=== PATIENT | female | born 1940 | race Two or more races ===

== ENCOUNTER 2022-07-07 10:46 | Emergency (ER) | payer OTHER ==
[~2022-07-07] VITALS: Ht 175.3 cm; Wt 108.9 kg
[~2022-07-07 10:46] MED LIST: ALBUAER3 IN; ALLO100T PO; ASCO10003 PO; ASPI1TAB20 PO; AZIT500T66 PO; CHLO25TA2 PO; CHOL1CAP47 PO; CLOP75TA28 PO; DEXA6TAB6 PO; FLUC100T34 PO; ISOS1TAB28 PO; LEVO25TA6 PO; LEVO50TA7 PO; LISI20TA28 PO; LOSA-39 PO; POTA10TA51 PO; SIMV-13 PO; ZINC220T6 PO
[2022-07-07 12:25] LABS: Basophils # (auto) 0.1 10 ^3/uL (0-0.2); Eosinophils # (auto) 0.2 10 ^3/uL (0-0.8); Eosinophils % (auto) 2.4 % (0.0-7.0); Hematocrit 41.4 % (36.0-46.0); Hemoglobin 13.7 g/dL (12.2-16.2); Lymphocytes # (auto) 1.6 10 ^3/uL (0.4-5.4); Lymphocytes % (auto) 22.7 % (10.0-50.0); Mean Corpuscular Hemoglobin 30.7 pg (28.0-32.0); Mean Corpuscular Volume 92.8 fL (80.0-100.0); Monocytes # (auto) 0.6 10 ^3/uL (0-1.3); Monocytes % (auto) 9.1 % (0.0-12.0); Neutrophils # (auto) 4.6 10 ^3/uL (1.6-8.6); Neutrophils % (auto) 64.8 % (37.0-80.0); Nucleated Red Blood Cells % 0.1 %; Red Blood Cells 4.46 10^6/uL (4.0-5.20); Red Cell Distribution Width 13.9 % (11.8-14.3)
[2022-07-07 12:41] LABS: INR 0.95 (0.9-1.15); Partial Thromboplastin Time 30.5 sec (24.6-33.4)
[2022-07-07] MEDS ORDERED: PROMETHAZINE HCL 25 MG/ML 1ML IM ONE (13:30)
[2022-07-07] MEDS ORDERED: MEPERIDINE HCL (50 MG/ML) 1 ML VIAL IM ONE (13:30)
[2022-07-07 14:02] VITALS: BP 124/83
[2022-07-07] MEDS ORDERED: PRED20TA2 PO (14:54)
== END 2022-07-07 14:58 | disposition home or self-care (01) ==
LOC: ER 10:46
DX: G89.29 Other chronic pain (principal); M54.50 Low back pain, unspecified; M51.36 Other intervertebral disc degeneration, lumbar region; K80.20 Calculus of gallbladder without cholecystitis without obstruction; I10 Essential (primary) hypertension; I25.2 Old myocardial infarction; E78.5 Hyperlipidemia, unspecified; E03.9 Hypothyroidism, unspecified; Z90.49 Acquired absence of other specified parts of digestive tract; Z95.1 Presence of aortocoronary bypass graft; Z90.710 Acquired absence of both cervix and uterus; Z90.89 Acquired absence of other organs
CPT/HCPCS: 36415; 72131; 83735; 84484; 85025; 85610; 85730; 93005; 96372; 99285; J2175; J2550

== ENCOUNTER 2022-08-27 13:54 | Inpatient (IN) | payer OTHER ==
[~2022-08-27] VITALS: Ht 175.3 cm; Wt 102.3 kg
[~2022-08-27 13:54] MED LIST changes: +PRED20TA2 PO
[2022-08-27] MEDS ORDERED: MORPHINE SULFATE 4 MG/ML SYR/VIAL IV ONE (14:15)
[2022-08-27] MEDS ORDERED: ONDANSETRON HCL 4 MG/2 ML VIAL IV ONE (14:15)
[2022-08-27 14:35] LABS: Basophils # (auto) 0.1 10 ^3/uL (0-0.2); Basophils % (auto) 0.9 % (0.0-2.0); Eosinophils # (auto) 0.1 10 ^3/uL (0-0.8); Eosinophils % (auto) 0.8 % (0.0-7.0); Hematocrit 44.3 % (36.0-46.0); Hemoglobin 14.8 g/dL (12.2-16.2); Lymphocytes # (auto) 1.7 10 ^3/uL (0.4-5.4); Lymphocytes % (auto) 19.6 % (10.0-50.0); Mean Corpuscular Hemoglobin 30.9 pg (28.0-32.0); Mean Corpuscular Hgb Conc. 33.5 g/dL (32.0-36.0); Mean Corpuscular Volume 92.4 fL (80.0-100.0); Monocytes # (auto) 0.9 10 ^3/uL (0-1.3); Monocytes % (auto) 10.3 % (0.0-12.0); Neutrophils # (auto) 5.9 10 ^3/uL (1.6-8.6); Neutrophils % (auto) 68.4 % (37.0-80.0); Nucleated Red Blood Cells % 0.1 %; Red Blood Cells 4.79 10^6/uL (4.0-5.20); Red Cell Distribution Width 14.3 % (11.8-14.3); White Blood Cell 8.6 10^3/uL (4.4-10.8)
[2022-08-27 14:56] LABS: INR 0.95 (0.9-1.15); Partial Thromboplastin Time 28.2 sec (24.6-33.4)
[2022-08-27 15:01] LABS: Albumin 4.1 g/dL (3.4-5.0); BUN/Creatinine Ratio 20.5; Calcium 8.8 mg/dL (8.5-10.1); Potassium 4.2 mmol/L (3.5-5.1)
[2022-08-27 15:03] LABS: Bilirubin, Total 1.6 mg/dL (0.2-1.0)
[2022-08-27] MEDS ORDERED: ENOXAPARIN SOD 100 MG/1 ML SYRINGE SC ONE (15:30)
[2022-08-27] MEDS ORDERED: HYDROmorphone HCL 2 MG/ML VL/or syr IV ONE (16:15)
[2022-08-27] MEDS ORDERED: ONDANSETRON HCL 4 MG/2 ML VIAL IV PRN (20:30)
[2022-08-27] MEDS ORDERED: SODIUM CHLORIDE 0.9% 1,000 ML IV ONE (20:30)
[2022-08-27] MEDS ORDERED: NITROGLYCERIN 0.4 MG SL TAB SL PRN (20:30)
[2022-08-27] MEDS ORDERED: ACETAMINOPHEN 325 MG TAB PO PRN (20:30)
[2022-08-27] MEDS ORDERED: MORPHINE SULFATE INJ 2 MG/ml SYRG IV PRN (20:30)
[2022-08-27] MEDS ORDERED: ALBUTEROL SULF HFA 90MCG INH 200DOSE IN PRN (20:30)
[2022-08-27] MEDS: HYDROmorphone HCL 2 MG/ML VL/or syr IV PRN (21:09)
[2022-08-27 21:22] LABS: Cholesterol 201 mg/dL (< 200); Triglycerides 245 mg/dL (< 150)
[2022-08-27 21:24] LABS: HDL Cholesterol 53 mg/dL (40-59); LDL Cholesterol 79 mg/dL (< 100)
[2022-08-27] MEDS: ATORVASTATIN 20 MG TAB PO SCH (22:35)
[2022-08-27] MEDS: DOCUSATE SOD 100 MG CAP PO PRN (22:36)
[2022-08-28] MEDS: HYDROmorphone HCL 2 MG/ML VL/or syr IV PRN ×4 (01:20→20:59)
[2022-08-28] MEDS ORDERED: ENOXAPARIN SOD 100 MG/1 ML SYRINGE SC SCH (04:00)
[2022-08-28 04:45] LABS: Basophils # (auto) 0.1 10 ^3/uL (0-0.2); Basophils % (auto) 0.8 % (0.0-2.0); Eosinophils # (auto) 0.1 10 ^3/uL (0-0.8); Hematocrit 39.5 % (36.0-46.0); Hemoglobin 13.3 g/dL (12.2-16.2); Lymphocytes # (auto) 2.2 10 ^3/uL (0.4-5.4); Lymphocytes % (auto) 32.8 % (10.0-50.0); Mean Corpuscular Hemoglobin 31.7 pg (28.0-32.0); Mean Corpuscular Hgb Conc. 33.8 g/dL (32.0-36.0); Mean Corpuscular Volume 93.8 fL (80.0-100.0); Monocytes # (auto) 0.9 10 ^3/uL (0-1.3); Monocytes % (auto) 12.9 % (0.0-12.0); Neutrophils # (auto) 3.5 10 ^3/uL (1.6-8.6); Neutrophils % (auto) 51.5 % (37.0-80.0); Nucleated Red Blood Cells % 0.1 %; Red Blood Cells 4.21 10^6/uL (4.0-5.20); Red Cell Distribution Width 14.5 % (11.8-14.3); White Blood Cell 6.8 10^3/uL (4.4-10.8)
[2022-08-28 05:05] LABS: Albumin 3.3 g/dL (3.4-5.0); BUN/Creatinine Ratio 23.7; Bilirubin, Total 1.3 mg/dL (0.2-1.0); Calcium 8.1 mg/dL (8.5-10.1); Total Protein 5.8 g/dL (6.4-8.2)
[2022-08-28] MEDS: LEVOTHYROXINE SODIUM 25 MCG TAB PO SCH (06:51)
[2022-08-28] MEDS ORDERED: LISINOPRIL 20 MG TAB PO SCH (10:00)
[2022-08-28] MEDS ORDERED: ASPirin 81 mg TAB PO SCH (10:00)
[2022-08-28] MEDS ORDERED: ISOSORBIDE MONONITRATE ER 60 MG TAB PO SCH (10:00)
[2022-08-28] MEDS ORDERED: PATIENTS OWN MEDICATION (Clopidogrel Bisulfate (Plavix) 75 MG) PO SCH (10:00)
[2022-08-28] MEDS ORDERED: ENOXAPARIN SOD 40 MG/0.4 ML SYRINGE SC SCH (10:00)
[2022-08-28] MEDS ORDERED: ASPirin-EC 81 mg tab PO SCH (10:00)
[2022-08-28] MEDS: ASCORBIC ACID 1,000 MG TAB PO SCH (10:35)
[2022-08-28] MEDS: CHOLECALCIFEROL (VITD3) 2,000 UNIT CAP/TAB PO SCH (10:36)
[2022-08-28] MEDS: ALLOPURINOL 100 MG TAB PO SCH (10:36)
[2022-08-28] MEDS: CLOPIDOGREL BISULFATE 75 MG TAB PO SCH (10:36)
[2022-08-28] MEDS: LOSARTAN POTASSIUM 50 MG TAB PO SCH (10:37)
[2022-08-28] MEDS: PANTOPRAZOLE 40 MG/10 ML VIAL INJ IV SCH (10:37)
[2022-08-28] MEDS: POTASSIUM CHLORIDE 8 MEQ TAB PO SCH (10:38)
[2022-08-28] MEDS: CHLORTHALIDONE 25 MG PO SCH (10:42)
[2022-08-28] MEDS: PATIENTS OWN MEDICATION (Zinc Sulfate 220 MG) PO SCH (10:44)
[2022-08-28] MEDS ORDERED: GABA400C11 PO (11:55)
[2022-08-28] MEDS ORDERED: METH750T22 PO (17:55)
[2022-08-28 18:05] VITALS: BP 109/63
[2022-08-28] MEDS: DOCUSATE SOD 100 MG CAP PO PRN (18:22)
[2022-08-28 20:00] VITALS: BP 137/77
[2022-08-28 21:01] LABS: Urine Bacteria NONE SEEN /hpf (None Seen); Urine Blood Negative /uL (Negative); Urine Mucus FEW (None Seen); Urine Specific Gravity 1.017 (1.001-1.035); Urine WBC 12 /hpf (0 - 5)
[2022-08-28] MEDS: ATORVASTATIN 20 MG TAB PO SCH (21:45)
[2022-08-28 22:00] VITALS: BP 136/75
[2022-08-29] MEDS: HYDROmorphone HCL 2 MG/ML VL/or syr IV PRN ×2 (04:20→10:01)
[2022-08-29 05:00] VITALS: BP 125/54
[2022-08-29] MEDS: LEVOTHYROXINE SODIUM 25 MCG TAB PO SCH (06:43)
[2022-08-29] MEDS: DOCUSATE SOD 100 MG CAP PO PRN (06:54)
[2022-08-29 07:30] VITALS: BP 109/55
[2022-08-29 08:35] VITALS: BP 116/54
[2022-08-29] MEDS: PANTOPRAZOLE 40 MG/10 ML VIAL INJ IV SCH (09:12)
[2022-08-29] MEDS: CLOPIDOGREL BISULFATE 75 MG TAB PO SCH (09:14)
[2022-08-29] MEDS: ALLOPURINOL 100 MG TAB PO SCH (09:14)
[2022-08-29] MEDS: LOSARTAN POTASSIUM 50 MG TAB PO SCH (09:14)
[2022-08-29] MEDS: ASCORBIC ACID 1,000 MG TAB PO SCH (09:14)
[2022-08-29] MEDS: CHOLECALCIFEROL (VITD3) 2,000 UNIT CAP/TAB PO SCH (09:14)
[2022-08-29] MEDS: POTASSIUM CHLORIDE 8 MEQ TAB PO SCH (09:26)
[2022-08-29] MEDS ORDERED: ENOXAPARIN SOD 40 MG/0.4 ML SYRINGE SC SCH (10:00)
[2022-08-29] MEDS: CHLORTHALIDONE 25 MG PO SCH (10:00)
[2022-08-29] MEDS: PATIENTS OWN MEDICATION (Zinc Sulfate 220 MG) PO SCH (10:00)
[2022-08-29] MEDS ORDERED: FLEET ENEMA(ADULT) 135 ML PR ONE (10:45)
[2022-08-29] MEDS ORDERED: MAGNESIUM CITRATE SOLUTION 300 ML BTL PO ONE (10:45)
[2022-08-29] MEDS ORDERED: GOLYTELY 4L KIT PO ONE ×2 (12:30)
[2022-08-29 13:18] VITALS: BP 135/67
[2022-08-29 16:39] VITALS: BP 109/50
== END 2022-08-29 14:30 | disposition home health service (06) | DRG 551 ==
LOC: EDBD 13:54 → ER 13:58 → TELE 20:26 → TELE-CENTR 08-28 17:28 → CENTRAL 08-28 17:39
PROVIDERS: ADMIT Nurse Practitioner Family; ATTEND Internal Medicine
DX: M51.36 Other intervertebral disc degeneration, lumbar region (principal); I21.4 Non-ST elevation (NSTEMI) myocardial infarction; E66.9 Obesity, unspecified; G89.29 Other chronic pain; I10 Essential (primary) hypertension; I16.0 Hypertensive urgency; E03.9 Hypothyroidism, unspecified; I25.10 Atherosclerotic heart disease of native coronary artery without angina pectoris; Z20.822 Contact with and (suspected) exposure to COVID-19; K80.20 Calculus of gallbladder without cholecystitis without obstruction; M10.9 Gout, unspecified; M54.31 Sciatica, right side; E78.5 Hyperlipidemia, unspecified; I25.2 Old myocardial infarction; Z79.02 Long term (current) use of antithrombotics/antiplatelets; Z79.899 Other long term (current) drug therapy; Z80.1 Family history of malignant neoplasm of trachea, bronchus and lung; Z82.3 Family history of stroke; Z82.49 Family history of ischemic heart disease and other diseases of the circulatory system; Z86.73 Personal history of transient ischemic attack (TIA), and cerebral infarction without residual deficits; Z90.49 Acquired absence of other specified parts of digestive tract; Z90.710 Acquired absence of both cervix and uterus; Z95.1 Presence of aortocoronary bypass graft; Z68.33 Body mass index [BMI] 33.0-33.9, adult
CPT/HCPCS: 36415; 71045; 72131; 74176; 80053; 80061; 81001; 83880; 84443; 84484; 85025; 85610; 85730; 87426; 93005; 93306; 96361; 96374; 96375; C9113; G0378; J2405

== ENCOUNTER 2023-03-15 06:50 | Inpatient (IN) | payer OTHER ==
[~2023-03-15] VITALS: Ht 175.3 cm; Wt 95.3 kg
[~2023-03-15 06:50] MED LIST changes: -ALBUAER3 IN; -ASPI1TAB20 PO; -AZIT500T66 PO; -CHLO25TA2 PO; -DEXA6TAB6 PO; -FLUC100T34 PO; +GABA400C11 PO; -LEVO50TA7 PO; -LISI20TA28 PO; +METH750T22 PO; -POTA10TA51 PO; -PRED20TA2 PO; -ZINC220T6 PO
[2023-03-15 07:51] LABS: Basophils # (auto) 0.1 10 ^3/uL (0-0.2); Basophils % (auto) 0.8 % (0.0-2.0); Eosinophils # (auto) 0 10 ^3/uL (0-0.8); Eosinophils % (auto) 0.7 % (0.0-7.0); Hematocrit 44.1 % (36.0-46.0); Lymphocytes # (auto) 1.5 10 ^3/uL (0.4-5.4); Lymphocytes % (auto) 22.8 % (10.0-50.0); Mean Corpuscular Hemoglobin 31.2 pg (28.0-32.0); Mean Corpuscular Hgb Conc. 34.1 g/dL (32.0-36.0); Mean Corpuscular Volume 91.3 fL (80.0-100.0); Monocytes # (auto) 0.8 10 ^3/uL (0-1.3); Monocytes % (auto) 11.9 % (0.0-12.0); Neutrophils # (auto) 4.2 10 ^3/uL (1.6-8.6); Neutrophils % (auto) 63.8 % (37.0-80.0); Nucleated Red Blood Cells % 0.4 %; Red Blood Cells 4.83 10^6/uL (4.0-5.20); White Blood Cell 6.6 10^3/uL (4.4-10.8)
[2023-03-15 08:08] LABS: Albumin 4.2 g/dL (3.4-5.0); Calcium 9.1 mg/dL (8.5-10.1); Potassium 3.9 mmol/L (3.5-5.1)
[2023-03-15 08:12] LABS: Bilirubin, Total 1.3 mg/dL (0.2-1.0)
[2023-03-15 08:20] LABS: Urine Bacteria NONE SEEN /hpf (None Seen); Urine Blood Negative /uL (Negative); Urine Mucus FEW (None Seen); Urine Specific Gravity 1.015 (1.001-1.035); Urine WBC 31 /hpf (0 - 5)
[2023-03-15] MEDS ORDERED: SODIUM CHLORIDE 0.9% 1,000 ML IV ONE (08:30)
[2023-03-15] MEDS ORDERED: cefTRIAXone 1GM/50ML D5W 50 ML IV ONE ×2 (08:45→11:45)
[2023-03-15] MEDS ORDERED: metroNIDAZOLE 500MG/100ML 100 ML IV ONE (11:45)
[2023-03-15] MEDS ORDERED: MORPHINE SULFATE INJ 2 MG/ml SYRG IV PRN ×2 (12:00→22:15)
[2023-03-15] MEDS ORDERED: HYDROcodone-ACET 5/325MG TAB PO PRN (12:00)
[2023-03-15] MEDS ORDERED: DOCUSATE SOD 100 MG CAP PO PRN (12:00)
[2023-03-15] MEDS ORDERED: NITROGLYCERIN 0.4 MG SL TAB SL PRN (12:00)
[2023-03-15] MEDS ORDERED: ONDANSETRON HCL 4 MG/2 ML VIAL IV PRN (12:00)
[2023-03-15] MEDS ORDERED: ACETAMINOPHEN 325 MG TAB PO PRN (12:00)
[2023-03-15] MEDS: SODIUM CHLORIDE 0.9% 1,000 ML IV SCH (12:37)
[2023-03-15] MEDS: levoFLOXacin 500MG 100 ML IV SCH (13:11)
[2023-03-15] MEDS: metroNIDAZOLE 500MG/100ML 100 ML IV SCH (14:00)
[2023-03-15 19:56] LABS: Free T4 (Free Thyroxine) 1.23 ng/dL (0.89-1.76)
[2023-03-15 19:57] LABS: Free T3 2.32 pg/mL (2.3-4.2)
[2023-03-15 22:00] VITALS: BP 168/82
[2023-03-16] MEDS: SODIUM CHLORIDE 0.9% 1,000 ML IV SCH ×2 (00:16→08:00)
[2023-03-16] MEDS: metroNIDAZOLE 500MG/100ML 100 ML IV SCH ×3 (00:16→13:30)
[2023-03-16 01:24] VITALS: BP 136/54
[2023-03-16 04:55] VITALS: BP 118/43
[2023-03-16 05:41] LABS: Basophils # (auto) 0 10 ^3/uL (0-0.2); Basophils % (auto) 0.6 % (0.0-2.0); Eosinophils # (auto) 0.1 10 ^3/uL (0-0.8); Eosinophils % (auto) 1.1 % (0.0-7.0); Hematocrit 38.1 % (36.0-46.0); Lymphocytes # (auto) 1.9 10 ^3/uL (0.4-5.4); Lymphocytes % (auto) 27.1 % (10.0-50.0); Mean Corpuscular Hemoglobin 31.8 pg (28.0-32.0); Mean Corpuscular Hgb Conc. 34.3 g/dL (32.0-36.0); Mean Corpuscular Volume 92.8 fL (80.0-100.0); Monocytes # (auto) 0.9 10 ^3/uL (0-1.3); Neutrophils # (auto) 4.1 10 ^3/uL (1.6-8.6); Neutrophils % (auto) 58.2 % (37.0-80.0); Red Cell Distribution Width 13.9 % (11.8-14.3); White Blood Cell 7.1 10^3/uL (4.4-10.8)
[2023-03-16 05:59] LABS: Calcium 8.6 mg/dL (8.5-10.1); Potassium 3.8 mmol/L (3.5-5.1)
[2023-03-16] MEDS ORDERED: NITR0.4S29 SL (05:59)
[2023-03-16 06:01] LABS: BUN/Creatinine Ratio 28.4 (10.0-20.0)
[2023-03-16] MEDS ORDERED: LOSA-69 PO (06:01)
[2023-03-16] MEDS: levoFLOXacin 500MG 100 ML IV SCH (08:53)
[2023-03-16 09:00] VITALS: BP 138/60
[2023-03-16] MEDS ORDERED: BACDST PO (10:58)
[2023-03-16] MEDS ORDERED: SULFAMETHOX W/TRIMETH(800/160MG) DS TAB PO SCH (11:00)
[2023-03-16] MEDS ORDERED: POLYETHYLENE GLYCOL 17 GM PWDR PO SCH (12:20)
[2023-03-16 13:00] VITALS: BP 142/57
[2023-03-16] MEDS ORDERED: FLUCONAZOLE 100 MG TAB PO ONE (15:30)
[2023-03-16 17:00] VITALS: BP 100/58
[2023-03-16] MEDS ORDERED: ONDA-144 PO (17:36)
== END 2023-03-16 18:25 | disposition home health service (06) | DRG 445 ==
LOC: ER 06:50 → TELE 11:53 → TELE-EAST 22:54
PROVIDERS: ADMIT Internal Medicine; ATTEND Internal Medicine
DX: K80.00 Calculus of gallbladder with acute cholecystitis without obstruction (principal); M48.56XA Collapsed vertebra, not elsewhere classified, lumbar region, initial encounter for fracture; N30.00 Acute cystitis without hematuria; E78.5 Hyperlipidemia, unspecified; I10 Essential (primary) hypertension; K76.0 Fatty (change of) liver, not elsewhere classified; M47.819 Spondylosis without myelopathy or radiculopathy, site unspecified; M51.36 Other intervertebral disc degeneration, lumbar region; N28.1 Cyst of kidney, acquired; R63.0 Anorexia; E07.9 Disorder of thyroid, unspecified; I25.2 Old myocardial infarction; Z85.42 Personal history of malignant neoplasm of other parts of uterus; Z95.1 Presence of aortocoronary bypass graft; Z80.1 Family history of malignant neoplasm of trachea, bronchus and lung; Z82.3 Family history of stroke; Z82.49 Family history of ischemic heart disease and other diseases of the circulatory system; Z90.710 Acquired absence of both cervix and uterus; Z68.31 Body mass index [BMI] 31.0-31.9, adult
CPT/HCPCS: 36415; 70450; 71045; 72148; 74176; 76705; 78226; 80048; 80053; 81001; 82962; 83605; 83880; 84439; 84443; 84481; 84484; 85025; 87040; 87086; 93005; 93306; 96365; 96368; 97163; G0378; J0696; J1956; J2405; J3490

== ENCOUNTER 2023-04-15 07:52 | Emergency (ER) | payer OTHER ==
[~2023-04-15] VITALS: Ht 167.6 cm; Wt 97.2 kg
[~2023-04-15 07:52] MED LIST changes: +BACDST PO; +GABA-1251 PO; -GABA400C11 PO; -LOSA-39 PO; +LOSA50TA46 PO; +METH-1182 PO; -METH750T22 PO; +NITR0.4S29 SL; +ONDA-144 PO; -SIMV-13 PO; +SIMV40TA18 PO
[2023-04-15 09:05] LABS: Basophils # (auto) 0.1 10 ^3/uL (0-0.2); Basophils % (auto) 0.9 % (0.0-2.0); Eosinophils # (auto) 0 10 ^3/uL (0-0.8); Eosinophils % (auto) 0.5 % (0.0-7.0); Hemoglobin 14.6 g/dL (12.2-16.2); Lymphocytes # (auto) 1.2 10 ^3/uL (0.4-5.4); Lymphocytes % (auto) 19.9 % (10.0-50.0); Mean Corpuscular Hemoglobin 31.6 pg (28.0-32.0); Mean Corpuscular Hgb Conc. 33.9 g/dL (32.0-36.0); Mean Corpuscular Volume 93.2 fL (80.0-100.0); Monocytes # (auto) 0.6 10 ^3/uL (0-1.3); Monocytes % (auto) 8.9 % (0.0-12.0); Neutrophils # (auto) 4.4 10 ^3/uL (1.6-8.6); Neutrophils % (auto) 69.8 % (37.0-80.0); Nucleated Red Blood Cells % 0.1 %; Red Blood Cells 4.61 10^6/uL (4.0-5.20); Red Cell Distribution Width 14.9 % (11.8-14.3); White Blood Cell 6.3 10^3/uL (4.4-10.8)
[2023-04-15 09:23] LABS: Albumin 4.3 g/dL (3.4-5.0); Potassium 3.9 mmol/L (3.5-5.1)
[2023-04-15 09:25] LABS: Bilirubin, Total 1.1 mg/dL (0.2-1.0); Total Protein 7.5 g/dL (6.4-8.2)
[2023-04-15] MEDS ORDERED: METOCLOPRAMIDE HCL 5MG/ml INJ 2ml VIAL IV ONE (10:45)
[2023-04-15] MEDS ORDERED: FAMOTIDINE (10MG/ML) 2ML VL IV ONE (10:45)
[2023-04-15] MEDS ORDERED: HYDROcodone-ACET 5/325MG TAB PO ONE (10:45)
[2023-04-15] MEDS ORDERED: MAALOX PLUS or MAALOX 30 ML PO ONE (10:45)
[2023-04-15 11:22] LABS: Urine Bacteria NONE SEEN /hpf (None Seen); Urine Blood Negative /uL (Negative); Urine Hyaline Cast FEW /lpf (0 - 2); Urine Mucus FEW (None Seen); Urine Specific Gravity 1.016 (1.001-1.035); Urine WBC 1 /hpf (0 - 5)
[2023-04-15] MEDS ORDERED: SODIUM CHLORIDE 0.9% 1,000 ML IV ONE (12:00)
[2023-04-15 14:00] VITALS: BP 129/41
[2023-04-15] MEDS ORDERED: CLOT2CRE5 VA (15:55)
[2023-04-15] MEDS ORDERED: METO-281 PO (15:56)
== END 2023-04-15 16:11 | disposition home or self-care (01) ==
LOC: ER 07:52
DX: K80.50 Calculus of bile duct without cholangitis or cholecystitis without obstruction (principal); K80.80 Other cholelithiasis without obstruction; L29.8 Other pruritus; E78.5 Hyperlipidemia, unspecified; I10 Essential (primary) hypertension; Z79.899 Other long term (current) drug therapy; Z90.49 Acquired absence of other specified parts of digestive tract; Z90.710 Acquired absence of both cervix and uterus; Z90.89 Acquired absence of other organs; Z98.890 Other specified postprocedural states
CPT/HCPCS: 36415; 76705; 80053; 81001; 83690; 85025; 93005; 96361; 96374; 96375; 99285; J2765; J3490; J7030